=== PATIENT | female | born 1995 | race Caucasian/White ===

== ENCOUNTER 2024-08-19 20:28 | Inpatient (IN) ==
[2024-08-19] MEDS ORDERED: OXYTOCIN 30 UNITS/NSS 30 UNITS/500 ML BAG IV PRN (20:47)
[2024-08-19] MEDS ORDERED: LIDOCAINE 1% LOCAL 20 ML VIAL INFIL PRN (20:47)
[2024-08-19 21:16] LABS: Hematocrit (blood only) 40.0 % (37.0-47.0); Hemoglobin 13.6 g/dl (12.0-16.0); Mean Corpuscular Hemoglobin 30.0 pg (25.0-34.0); Mean Corpuscular Volume 88.1 fL (80.0-100.0); Platelet Count 171 K/uL (130-400); RDW Standard Deviation 42.9 fL (36.4-46.3); Red Blood Count 4.54 M/uL (4.20-5.40); White Blood Count 11.35 K/ul (4.8-10.8)
[2024-08-19] MEDS: LACTATED RINGER'S 1,000 ML IV PRN (21:19)
--- NOTE | 2024-08-19 21:22 | Anesthesiology Consultation ---
Date of Service August 19, 2024 Assessment & Plan (1) Encounter for pre-operative examination: Chart Review Chart Review: Acceptable Risk for Labor Epidural History Height/Weight Height: 5 ft 4 in Weight: 74.843 kg Allergies Allergy/AdvReac Type Severity Reaction Status Date / Time No Known Allergies Allergy Verified 08/19/24 20:52 Medications Home Medications Medication Instructions Recorded Confirmed Last Taken duloxetine 90 mg PO DAILY 04/25/24 08/19/24 08/18/24 21:00 [id number] 1 tab PO DAILY 04/25/24 08/19/24 08/18/24 21:00 [ Plus] acetone (urine) test (Ketone Urine #50 ea 06/09/24 08/12/24 Unknown Test strips) blood sugar diagnostic (OneTouch #150 ea 06/09/24 08/12/24 Unknown Verio test strips) blood-glucose meter (OneTouch #1 ea 06/09/24 08/12/24 Unknown Verio Reflect Meter) lancets 33 gauge (OneTouch Delica #150 ea 06/09/24 08/12/24 Unknown Plus Lancet) Active Medications Generic Name Dose Route Start Last Admin Trade Name Freq PRN Reason Stop Dose Admin Lactated Ringer's 1,000 mls @ 125 mls/hr 08/19/24 20:47 08/19/24 21:19 Lr IV 08/21/24 20:46 999 mls/hr .Q8H PRN Administration L&D Protocol Protocol Past Medical History Medical History Varicella vaccination Small fiber neuropathy Past Family History Family History Mother Thyroid cancer Father Thyroid cancer Denies family history of Ovarian cancer Breast cancer Colorectal cancer Past Surgical History Surgical History H/O rhinoplasty Social History Smoking Status: Never smoker Do You Dip or Chew Tobacco: No Hx Alcohol Use: No Hx Substance Use: No Physical Exam Vital Signs Last Vital Signs Temp 36.7 C 08/19/24 20:56 Pulse 86 08/19/24 20:56 Resp 18 08/19/24 20:56 BP 123/80 08/19/24 20:56 Testing Laboratory Results 08/19/24 21:01
[2024-08-19] MEDS: BUPIVACAINE 0.25% PF 30 ML VIAL ONE (21:50)
[2024-08-19] MEDS: LIDOCAINE 2%/EPINEPHRINE 1:200,000 20 ML PF ONE (21:50)
[2024-08-19] MEDS ORDERED: BUPIVACAINE 0.25% PF 30 ML VIAL EPI PRN (21:51)
[2024-08-19] MEDS ORDERED: ONDANSETRON INJ 2 MG/ML 2 ML VIAL IV PRN (21:51)
[2024-08-19] MEDS ORDERED: ROPIVACAINE 0.5% PF 5 MG/ML 20 ML VIAL EPI PRN (21:51)
[2024-08-19] MEDS ORDERED: LIDOCAINE 2% MPF LOCAL 5 ML VIAL EPI PRN (21:51)
[2024-08-19] MEDS ORDERED: fentANYL 2 MCG/ML BUPIVacaine 0.125%-NSS 100ML BAG EPI PRN (21:51)
[2024-08-19] MEDS ORDERED: NALOXONE HCL 1 MG in SODIUM CHLORIDE 0.9% 1,000 ML IV PRN (21:51)
[2024-08-19] MEDS ORDERED: SODIUM CHLORIDE 0.9% PF INJ 10 ML VIAL EPI PRN (21:51)
[2024-08-19] MEDS ORDERED: NALOXONE HCL 0.4 MG/1 ML VIAL/CARP IV PRN (21:51)
[2024-08-19] MEDS: fentANYL 2 MCG/ML BUPIVacaine 0.125%-NSS 100ML BAG ONE (21:53)
[2024-08-20] MEDS: SODIUM CHLORIDE 0.9% PF INJ 10 ML VIAL ONE (02:35)
[2024-08-20] MEDS: CALCIUM CARBONATE 500 MG CHEWABLE TAB PO PRN (02:38)
[2024-08-20] MEDS: OXYTOCIN 30 UNITS/NSS 30 UNITS/500 ML BAG IV SCH (05:34)
--- NOTE | 2024-08-20 07:00 | Delivery Summary ---
Vaginal Delivery Summary Date of Service August 20, 2024 Vaginal Delivery Summary DIAGNOSES: 1. Mcgarry intrauterine at 39w0d gestation. 2. Spontaneous onset of labor. 3. Group B Streptococcus Neg. PROCEDURE: Spontaneous vaginal delivery and repair of second degree laceration. SURGEON: Patricia Daniels MD. CYANIDE POT TENDER: None. ESTIMATED BLOOD LOSS: 564 mL. COMPLICATIONS: None. PLACENTA: Spontaneous and intact with a 3-vessel cord. DISPOSITION: Stable to labor and delivery. DESCRIPTION: The patient pushed well and brought the head to in DOA position. The infant's head was allowed to deliver with contraction force and no further active pushing, with the perineum protected during this time. There was a posterior shoulder cord which also later was found to be wrapped around the infant's waist tightly x3. The shoulders and body delivered without any difficulty, and the was placed on the maternal abdomen. It was vigorous and moving all extremities, and making respiratory efforts. The cord was doubly clamped by the MD and then cut by the FOB. The placenta delivered spontaneously and was noted to be intact and with a 3VC. The cervix, vagina and perineum were examined and were found to have a second-degree laceration which was repaired in the usual manner with vicryl suture. Following a betadine prep, the bladder was emptied via straight cath. The fundus was firm and lochia minimal immediately after delivery. [facility] Vaginal Delivery Charge Vaginal Delivery Codes: 44700 global code for the antepartum, delivery, and post-
[2024-08-20] MEDS ORDERED: HYDROCORTISONE ACETATE 25 MG SUPP PR PRN (07:06)
[2024-08-20] MEDS: DIPHTHER/TETAN/PERTUS Vaccine (Tdap, Adol/Adult) 0.5mL IM ONE (07:14)
[2024-08-20] MEDS: OXYTOCIN 30 UNITS/NSS 30 UNITS/500 ML BAG IV PRN (07:15)
--- NOTE | 2024-08-20 07:35 | Anesthesia Procedure Note ---
Date of Service August 20, 2024 Anesthesia Post Epidural Note Vital Signs Vital Signs: Temp Pulse Resp BP Pulse Ox 37.2 C 78 20 134/94 83 L 08/20/24 04:46 08/20/24 07:28 08/20/24 07:28 08/20/24 07:28 08/20/24 06:25 Notes Mental Status: alert / awake / arousable and participated in evaluation Patient Amnestic to Procedure: No Nausea / Vomiting: adequately controlled Pain: adequately controlled Airway Patency, RR, SpO2: stable & adequate BP & HR: stable & adequate Hydration State: stable & adequate Neuraxial Anesthesia: was administered and sensory block is resolving Anesthetic Complications: no major complications apparent and Pt Satisfied with anesthetic care Epidural: Removed without complications and With tip intact
[2024-08-20] MEDS: DOCUSATE SODIUM 100 MG CAP PO SCH (07:50)
[2024-08-20] MEDS: PRENATAL VITAMIN 1 TAB PO SCH (07:50)
[2024-08-20] MEDS ORDERED: Nursing to Pharmacy Communication SCH (08:00)
[2024-08-20 09:58] LABS: Hematocrit (blood only) 27.9 % (37.0-47.0); Hemoglobin 9.4 g/dl (12.0-16.0); Mean Corpuscular Hemoglobin 30.5 pg (25.0-34.0); Mean Corpuscular Volume 90.6 fL (80.0-100.0); Platelet Count 129 K/uL (130-400); RDW Standard Deviation 44.1 fL (36.4-46.3); Red Blood Count 3.08 M/uL (4.20-5.40); White Blood Count 16.24 K/ul (4.8-10.8)
[2024-08-20 10:06] LABS: Alanine Aminotransferase 23.0 U/L (7-52); Creatinine Clr Calc Pharmacy 66.9 ml/min
[2024-08-20] MEDS: IBUPROFEN 600 MG TAB PO PRN (10:43)
[2024-08-20] MEDS: BENZOCAINE 20% SPRY 85 APPLN/85 GM CAN EXT PRN (13:54)
[2024-08-21 06:26] LABS: Hematocrit (blood only) 25.7 % (37.0-47.0); Hemoglobin 8.8 g/dl (12.0-16.0); Mean Corpuscular Hemoglobin 31.0 pg (25.0-34.0); Mean Corpuscular Volume 90.5 fL (80.0-100.0); Platelet Count 137 K/uL (130-400); RDW Standard Deviation 44.6 fL (36.4-46.3); Red Blood Count 2.84 M/uL (4.20-5.40); White Blood Count 13.37 K/ul (4.8-10.8)
[2024-08-21 06:41] LABS: Creatinine Clr Calc Pharmacy 72.1 ml/min
--- NOTE | 2024-08-21 07:45 | Obstetrical Progress Note ---
Date of Service August 21, 2024 Assessment & Plan (1) Encounter for care and examination after delivery: Day 1 status post vaginal delivery. Overall doing well today. Has some labile blood pressures throughout the day yesterday but denying any preeclampsia symptoms. She is mostly normotensive with occasional mild range blood pressure noted. Creatinine was mildly elevated immediately after delivery but has improved to normal range. Will continue to monitor but not indicating treatment of blood pressures at this time Subjective Ambulation: ambulating normally Voiding: no voiding problems Passing Gas:: Yes Diet Tolerance:: regular diet Lochia:: Moderate Physical Exam Constitutional WD/WN, vitals as above Respiratory normal respiratory effort; no respiratory distress and no labored breathing Cardiovascular Extremities: no calf tenderness Gastrointestinal (Abdomen) Inspection/Auscultation: abdomen normal to inspection; abdomen not distended Percussion/Palpation: abdomen soft; abdomen nontender, no guarding and abdomen not rigid Genitourinary OB Exam Abdomen: + fundal height Fundus: + firm and + relation to umbilicus (Below); not tender or not boggy Results & Data Vital Signs (Past 12 Hours) Vital Signs Temp Pulse Resp BP Pulse Ox O2 Del Method 08/21/24 04:15 36.5 C 83 18 130/87 97 Room Air 08/20/24 23:50 130/90 08/20/24 23:40 36.7 C 69 20 145/94 H 99 Room Air
[2024-08-21] MEDS: SODIUM CHLORIDE 0.9% PF INJ 10 ML VIAL EPI STA (23:31)
[2024-08-21] MEDS: LIDOCAINE 2%/EPINEPHRINE 1:200,000 20 ML PF EPI STA (23:31)
[2024-08-21] MEDS: BUPIVACAINE 0.25% PF 30 ML VIAL EPI STA (23:32)
[2024-08-22 06:51] LABS: Hematocrit (blood only) 24.6 % (37.0-47.0); Hemoglobin 8.3 g/dl (12.0-16.0)
--- NOTE | 2024-08-22 07:35 | Obstetrical Progress Note ---
Date of Service August 22, 2024 Assessment & Plan (1) Encounter for care and examination after delivery: Plan PPD#2 doing well. Ambulating well, eating/drinking ok. Not planning to breastfeed- discussed compression bra, ice packs. Reviewed instructions. Followup office 6w. She will start iron PO. Subjective Ambulation: ambulating normally Voiding: no voiding problems Diet Tolerance:: regular diet Lochia:: Moderate Review of Systems All systems reviewed & are unremarkable except as noted in HPI & below Physical Exam Constitutional WD/WN, vitals as above no acute distress Respiratory normal respiratory effort Cardiovascular Rate/Rhythm: regular rate and regular rhythm Gastrointestinal (Abdomen) Inspection/Auscultation: abdomen normal to inspection; abdomen not distended Percussion/Palpation: abdomen soft Genitourinary OB Exam Abdomen: + fundal height Fundus: + firm; not tender Results & Data Vital Signs (Past 12 Hours) Vital Signs Temp Pulse Resp BP Pulse Ox O2 Del Method 08/21/24 23:36 36.7 C 76 16 128/82 98 Room Air
[2024-08-22 10:06] LABS: Hematocrit (blood only) 23.8 % (37.0-47.0); Hemoglobin 8.3 g/dl (12.0-16.0); Mean Corpuscular Hemoglobin 31.2 pg (25.0-34.0); Mean Corpuscular Volume 89.5 fL (80.0-100.0); Platelet Count 163 K/uL (130-400); RDW Standard Deviation 45.1 fL (36.4-46.3); Red Blood Count 2.66 M/uL (4.20-5.40); White Blood Count 11.22 K/ul (4.8-10.8)
[2024-08-22 10:25] LABS: Alanine Aminotransferase 28.0 U/L (7-52); Albumin Globulin Ratio 1.4 (0.9-2); Alkaline Phosphatase 204.0 U/L (34-104); Anion Gap 4.0 (3-11); Bilirubin,Total 0.3 mg/dl (0.2-1.0); Blood Urea Nitrogen 15.0 mg/dl (6-23); Calcium 7.9 mg/dl (8.6-10.3); Carbon Dioxide 24.0 mmol/L (21-32); Chloride 110.0 mmol/L (98-107); Creatinine Clr Calc Pharmacy 93.5 ml/min; Globulin 2.0 gm/dl (2.5-4.0); Glucose 77.0 mg/dl (70-99(Fasting)); Potassium 4.1 mmol/L (3.5-5.1); Sodium 138.0 mmol/L (136-145); Total Protein 4.7 gm/dl (6.0-8.3)
--- NOTE | 2024-08-22 11:18 | Obstetrical Progress Note ---
Date of Service August 22, 2024 Assessment & Plan (1) Preeclampsia: Plan Has preeclampsia now with one severe blood pressure. Has a very mild elevated of one transaminase. Will want to keep patient and monitor. Will treat blood pressure at this point. Repeat labs in 6 hours. If severe bps persist or worsening of lab values, will need to treat with Mag. Explained to patient and her and they express understanding of the situation. Subjective Patient ready for d/c but had elevated blood pressures. Has had some labile bp in the pp period. Patient is completely asx--denies monge/vision changes/ruq pain/increase in swelling. 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 h/h stable. Has had one severe blood pressure. Physical Exam Constitutional WD/WN, vitals as above Cardiovascular Extremities: + edema (tr); no calf tenderness Gastrointestinal (Abdomen) soft, nt, nd, ff/nt at u no ruq pain Neurologic patellar DTR's 2+ bilat, sensation intact Psychiatric A+Ox3, euthymic affect Results & Data Vital Signs (Past 12 Hours) Vital Signs Temp Pulse Pulse Resp BP Pulse Ox O2 Del Method 08/22/24 10:45 156/112 H 08/22/24 08:55 137/98 08/22/24 08:30 150/95 H 08/22/24 07:30 Room Air 08/22/24 07:30 36.4 C L 71 20 146/94 H 99 Room Air 08/21/24 23:36 36.7 C 76 16 128/82 98 Room Air
[2024-08-22] MEDS: LABETALOL HCL 200 MG TAB PO SCH (11:34)
--- NOTE | 2024-08-22 11:52 | Communication Note ---
Date of Service: August 22, 2024 Just got dose of labatelol. Now however, noting blurred vision. given bp , slightly bumped lft and now a severe sx, plan to transfer over for Mag prophylax is. discussed and they express understanding.
[2024-08-22] MEDS: LACTATED RINGER'S 1,000 ML IV SCH (12:30)
[2024-08-22] MEDS: MAGNESIUM SULFATE / WTR 40 GM/1,000 ML BAG IV SCH (12:37)
[2024-08-22] MEDS: MAG SULFATE 4GM BOLUS FROM BAG IV ONE (12:41)
[2024-08-22] MEDS: LIDOCAINE 2% JELLY 5 ML TUBE EXT ONE (12:41)
[2024-08-22 16:18] LABS: Hematocrit (blood only) 25.9 % (37.0-47.0); Hemoglobin 8.5 g/dl (12.0-16.0); Mean Corpuscular Hemoglobin 30.5 pg (25.0-34.0); Mean Corpuscular Volume 92.8 fL (80.0-100.0); Platelet Count 188 K/uL (130-400); RDW Standard Deviation 46.8 fL (36.4-46.3); Red Blood Count 2.79 M/uL (4.20-5.40); White Blood Count 10.73 K/ul (4.8-10.8)
[2024-08-22 16:37] LABS: Alanine Aminotransferase 70.0 U/L (7-52); Albumin Globulin Ratio 1.2 (0.9-2); Alkaline Phosphatase 223.0 U/L (34-104); Anion Gap 8.0 (3-11); Bilirubin,Total 0.3 mg/dl (0.2-1.0); Blood Urea Nitrogen 13.0 mg/dl (6-23); Calcium 7.5 mg/dl (8.6-10.3); Carbon Dioxide 22.0 mmol/L (21-32); Chloride 110.0 mmol/L (98-107); Creatinine Clr Calc Pharmacy 94.5 ml/min; Globulin 2.1 gm/dl (2.5-4.0); Glucose 159.0 mg/dl (70-99(Fasting)); Potassium 3.6 mmol/L (3.5-5.1); Sodium 140.0 mmol/L (136-145); Total Protein 4.7 gm/dl (6.0-8.3)
[2024-08-22] MEDS: ACETAMINOPHEN 325 MG TAB PO PRN (19:05)
[2024-08-23 05:31] LABS: Hematocrit (blood only) 28.3 % (37.0-47.0); Hemoglobin 9.4 g/dl (12.0-16.0); Mean Corpuscular Hemoglobin 30.1 pg (25.0-34.0); Mean Corpuscular Volume 90.7 fL (80.0-100.0); Platelet Count 223 K/uL (130-400); RDW Standard Deviation 45.5 fL (36.4-46.3); Red Blood Count 3.12 M/uL (4.20-5.40); White Blood Count 11.18 K/ul (4.8-10.8)
[2024-08-23 05:51] LABS: Alanine Aminotransferase 249.0 U/L (7-52); Albumin Globulin Ratio 1.1 (0.9-2); Alkaline Phosphatase 244.0 U/L (34-104); Anion Gap 5.0 (3-11); Bilirubin,Total 0.4 mg/dl (0.2-1.0); Blood Urea Nitrogen 10.0 mg/dl (6-23); Calcium 6.8 mg/dl (8.6-10.3); Carbon Dioxide 27.0 mmol/L (21-32); Chloride 107.0 mmol/L (98-107); Creatinine Clr Calc Pharmacy 102.8 ml/min; Globulin 2.5 gm/dl (2.5-4.0); Glucose 78.0 mg/dl (70-99(Fasting)); Potassium 4.4 mmol/L (3.5-5.1); Sodium 139.0 mmol/L (136-145); Total Protein 5.3 gm/dl (6.0-8.3)
--- NOTE | 2024-08-23 06:34 | Obstetrical Progress Note ---
Date of Service August 23, 2024 Assessment & Plan (1) Preeclampsia: (2) Encounter for care and examination after delivery: Plan Labs this am show a further bump in lfts that are not surprising and hopefully peaking, plts stable. no s/s of pet. Mag for 24 hours and off at 1. Hold labetalol for now. Making over 5000cc of urine overnight. Subjective Did well overnight. Pressures responded to mag. Notes some neck pain (has had for three years). Notes no pet sx. Physical Exam Constitutional WD/WN, vitals as above Respiratory normal respiratory effort, lungs clear to auscultation Cardiovascular RRR, no murmur, no edema Extremities: no calf tenderness and no edema (tr) Gastrointestinal (Abdomen) soft, nt, nd, ff/nt about 2 below u Neurologic patellar DTR's 2+ bilat, sensation intact Psychiatric A+Ox3, euthymic affect Results & Data Vital Signs (Past 12 Hours) Vital Signs Temp Pulse Pulse Pulse Resp BP BP 08/23/24 06:28 81 08/23/24 06:23 82 08/23/24 06:18 74 08/23/24 06:13 77 08/23/24 06:08 75 08/23/24 06:03 82 08/23/24 05:58 78 08/23/24 05:53 77 08/23/24 05:48 76 08/23/24 05:43 84 08/23/24 05:38 79 08/23/24 05:33 69 08/23/24 05:28 75 08/23/24 05:23 77 08/23/24 05:18 83 08/23/24 05:13 78 08/23/24 05:08 80 08/23/24 05:03 08/23/24 05:03 78 08/23/24 05:03 75 139/96 08/23/24 05:01 77 132/92 08/23/24 05:00 18 08/23/24 04:58 93 H 08/23/24 04:53 80 08/23/24 04:48 77 08/23/24 04:43 75 08/23/24 04:38 86 08/23/24 04:33 79 08/23/24 04:28 93 H 08/23/24 04:23 76 08/23/24 04:18 78 08/23/24 04:13 77 08/23/24 04:08 77 08/23/24 04:03 81 08/23/24 04:02 18 08/23/24 03:58 76 08/23/24 03:53 78 08/23/24 03:48 77 08/23/24 03:43 79 08/23/24 03:38 76 08/23/24 03:33 77 08/23/24 03:28 77 08/23/24 03:23 76 08/23/24 03:18 76 08/23/24 03:13 78 08/23/24 03:08 79 08/23/24 03:05 18 08/23/24 03:03 83 08/23/24 03:01 79 135/88 08/23/24 02:58 79 08/23/24 02:53 82 08/23/24 02:48 78 08/23/24 02:43 79 08/23/24 02:38 82 08/23/24 02:33 83 08/23/24 02:28 81 08/23/24 02:23 78 08/23/24 02:18 81 08/23/24 02:13 76 08/23/24 02:08 77 08/23/24 02:03 73 08/23/24 02:01 16 08/23/24 01:58 91 H 08/23/24 01:53 79 08/23/24 01:48 77 08/23/24 01:43 74 08/23/24 01:38 81 08/23/24 01:33 76 08/23/24 01:28 79 08/23/24 01:23 76 08/23/24 01:18 76 08/23/24 01:13 76 08/23/24 01:08 75 08/23/24 01:05 16 08/23/24 01:05 16 08/23/24 01:03 75 08/23/24 01:01 80 130/83 08/23/24 00:58 74 08/23/24 00:53 74 08/23/24 00:48 75 08/23/24 00:43 73 08/23/24 00:38 76 08/23/24 00:33 73 08/23/24 00:28 72 08/23/24 00:23 75 08/23/24 00:18 72 08/23/24 00:13 71 08/23/24 00:08 76 08/23/24 00:03 73 08/23/24 00:00 14 08/22/24 23:59 73 08/22/24 23:58 70 08/22/24 23:53 76 08/22/24 23:48 73 08/22/24 23:43 81 08/22/24 23:42 76 08/22/24 23:38 75 08/22/24 23:33 76 08/22/24 23:28 76 08/22/24 23:23 80 08/22/24 23:18 73 08/22/24 23:13 73 08/22/24 23:08 77 08/22/24 23:03 78 08/22/24 23:02 75 16 119/84 08/22/24 23:01 75 119/84 08/22/24 23:00 16 08/22/24 22:58 78 08/22/24 22:53 78 08/22/24 22:48 78 08/22/24 22:43 80 08/22/24 22:38 87 08/22/24 22:33 76 08/22/24 22:28 89 08/22/24 22:23 81 08/22/24 22:18 85 08/22/24 22:13 76 08/22/24 22:08 81 08/22/24 22:03 80 08/22/24 22:00 18 08/22/24 21:58 78 08/22/24 21:53 85 08/22/24 21:48 79 08/22/24 21:43 83 08/22/24 21:38 73 08/22/24 21:33 77 08/22/24 21:28 83 08/22/24 21:23 75 08/22/24 21:18 80 08/22/24 21:13 75 08/22/24 21:08 76 08/22/24 21:03 74 08/22/24 21:01 72 116/83 08/22/24 21:00 36.5 C 72 16 116/83 08/22/24 21:00 16 08/22/24 20:58 75 08/22/24 20:53 75 08/22/24 20:48 83 08/22/24 20:47 80 118/81 08/22/24 20:43 75 08/22/24 20:38 74 08/22/24 20:33 76 08/22/24 20:28 75 08/22/24 20:23 76 08/22/24 20:18 83 08/22/24 20:13 85 08/22/24 20:08 86 08/22/24 20:03 84 08/22/24 20:00 16 08/22/24 19:58 89 08/22/24 19:53 79 08/22/24 19:48 78 08/22/24 19:43 78 112/75 08/22/24 19:38 81 08/22/24 19:33 79 08/22/24 19:28 77 08/22/24 19:23 81 08/22/24 19:18 75 08/22/24 19:13 80 08/22/24 19:08 73 08/22/24 19:05 16 08/22/24 19:03 76 08/22/24 19:00 36.5 C 78 16 114/73 08/22/24 19:00 78 16 114/73 08/22/24 18:59 77 114/73 08/22/24 18:58 80 08/22/24 18:53 78 08/22/24 18:48 74 08/22/24 18:43 08/22/24 18:43 84 08/22/24 18:43 76 111/79 08/22/24 18:38 85 08/22/24 18:33 73 Pulse Ox O2 Del Method 08/23/24 06:28 98 08/23/24 06:23 100 08/23/24 06:18 100 08/23/24 06:13 99 08/23/24 06:08 100 08/23/24 06:03 99 08/23/24 05:58 100 08/23/24 05:53 100 08/23/24 05:48 100 08/23/24 05:43 100 08/23/24 05:38 100 08/23/24 05:33 100 08/23/24 05:28 100 08/23/24 05:23 100 08/23/24 05:18 98 08/23/24 05:13 100 08/23/24 05:08 100 08/23/24 05:03 100 08/23/24 05:03 08/23/24 05:03 08/23/24 05:01 08/23/24 05:00 08/23/24 04:58 100 08/23/24 04:53 98 08/23/24 04:48 98 08/23/24 04:43 98 08/23/24 04:38 99 08/23/24 04:33 97 08/23/24 04:28 98 08/23/24 04:23 97 08/23/24 04:18 97 08/23/24 04:13 97 08/23/24 04:08 97 08/23/24 04:03 97 08/23/24 04:02 08/23/24 03:58 97 08/23/24 03:53 97 08/23/24 03:48 96 08/23/24 03:43 98 08/23/24 03:38 97 08/23/24 03:33 97 08/23/24 03:28 97 08/23/24 03:23 97 08/23/24 03:18 97 08/23/24 03:13 97 08/23/24 03:08 98 08/23/24 03:05 08/23/24 03:03 100 08/23/24 03:01 08/23/24 02:58 97 08/23/24 02:53 97 08/23/24 02:48 98 08/23/24 02:43 97 08/23/24 02:38 100 08/23/24 02:33 100 08/23/24 02:28 100 08/23/24 02:23 100 08/23/24 02:18 100 08/23/24 02:13 100 08/23/24 02:08 100 08/23/24 02:03 100 08/23/24 02:01 08/23/24 01:58 100 08/23/24 01:53 100 08/23/24 01:48 99 08/23/24 01:43 100 08/23/24 01:38 100 08/23/24 01:33 97 08/23/24 01:28 99 08/23/24 01:23 100 08/23/24 01:18 98 08/23/24 01:13 99 08/23/24 01:08 97 08/23/24 01:05 08/23/24 01:05 08/23/24 01:03 98 08/23/24 01:01 08/23/24 00:58 96 08/23/24 00:53 96 08/23/24 00:48 96 08/23/24 00:43 96 08/23/24 00:38 96 08/23/24 00:33 95 08/23/24 00:28 95 08/23/24 00:23 95 08/23/24 00:18 95 08/23/24 00:13 94 08/23/24 00:08 98 08/23/24 00:03 95 08/23/24 00:00 08/22/24 23:59 94 08/22/24 23:58 97 08/22/24 23:53 98 08/22/24 23:48 95 08/22/24 23:43 94 08/22/24 23:42 94 08/22/24 23:38 96 08/22/24 23:33 100 08/22/24 23:28 98 08/22/24 23:23 100 08/22/24 23:18 99 08/22/24 23:13 100 08/22/24 23:08 100 08/22/24 23:03 100 08/22/24 23:02 100 08/22/24 23:01 08/22/24 23:00 08/22/24 22:58 100 08/22/24 22:53 99 08/22/24 22:48 100 08/22/24 22:43 100 08/22/24 22:38 99 08/22/24 22:33 100 08/22/24 22:28 100 08/22/24 22:23 100 08/22/24 22:18 100 08/22/24 22:13 100 08/22/24 22:08 100 08/22/24 22:03 100 08/22/24 22:00 08/22/24 21:58 99 08/22/24 21:53 99 08/22/24 21:48 100 08/22/24 21:43 97 08/22/24 21:38 99 08/22/24 21:33 98 08/22/24 21:28 100 08/22/24 21:23 98 08/22/24 21:18 98 08/22/24 21:13 100 08/22/24 21:08 100 08/22/24 21:03 100 08/22/24 21:01 08/22/24 21:00 100 Room Air 08/22/24 21:00 08/22/24 20:58 100 08/22/24 20:53 100 08/22/24 20:48 100 08/22/24 20:47 08/22/24 20:43 100 08/22/24 20:38 100 08/22/24 20:33 99 08/22/24 20:28 100 08/22/24 20:23 100 08/22/24 20:18 100 08/22/24 20:13 100 08/22/24 20:08 100 08/22/24 20:03 100 08/22/24 20:00 08/22/24 19:58 100 08/22/24 19:53 98 08/22/24 19:48 100 08/22/24 19:43 99 08/22/24 19:38 100 08/22/24 19:33 100 08/22/24 19:28 100 08/22/24 19:23 100 08/22/24 19:18 99 08/22/24 19:13 100 08/22/24 19:08 100 08/22/24 19:05 08/22/24 19:03 99 08/22/24 19:00 100 Room Air 08/22/24 19:00 100 Room Air 08/22/24 18:59 08/22/24 18:58 100 08/22/24 18:53 100 08/22/24 18:48 100 08/22/24 18:43 100 08/22/24 18:43 08/22/24 18:43 08/22/24 18:38 99 08/22/24 18:33 99
[2024-08-23] MEDS: STOP ORDER ONE (13:19)
[2024-08-24 06:40] LABS: Hematocrit (blood only) 28.3 % (37.0-47.0); Hemoglobin 9.2 g/dl (12.0-16.0); Mean Corpuscular Hemoglobin 30.3 pg (25.0-34.0); Mean Corpuscular Volume 93.1 fL (80.0-100.0); Platelet Count 274 K/uL (130-400); RDW Standard Deviation 47.1 fL (36.4-46.3); Red Blood Count 3.04 M/uL (4.20-5.40); White Blood Count 10.03 K/ul (4.8-10.8)
[2024-08-24 06:58] LABS: Alanine Aminotransferase 202.0 U/L (7-52); Albumin Globulin Ratio 1.3 (0.9-2); Alkaline Phosphatase 201.0 U/L (34-104); Anion Gap 4.0 (3-11); Bilirubin,Total 0.3 mg/dl (0.2-1.0); Blood Urea Nitrogen 15.0 mg/dl (6-23); Calcium 7.4 mg/dl (8.6-10.3); Carbon Dioxide 25.0 mmol/L (21-32); Chloride 110.0 mmol/L (98-107); Creatinine Clr Calc Pharmacy 99.1 ml/min; Globulin 2.3 gm/dl (2.5-4.0); Glucose 94.0 mg/dl (70-99(Fasting)); Potassium 4.1 mmol/L (3.5-5.1); Sodium 139.0 mmol/L (136-145); Total Protein 5.2 gm/dl (6.0-8.3)
--- NOTE | 2024-08-24 07:42 | Obstetrical Progress Note ---
Date of Service August 24, 2024 Assessment & Plan (1) Preeclampsia: (2) Encounter for care and examination after delivery: Plan 29 yo PP4 from c/b pre-eclampsia w/ severe features, doing well -Meeting all pp milestones -O-/rubella immune. s/p rhogam -BPs remain normal to mild range, LFTs are downtrending today and pt w/o s/s of PET. Discussed monitoring bps this am and if remain stable, ok for dc this pm and plan for bp check early this week. PET precautions reviewed, pt verbalized understanding Subjective Ambulation: ambulating normally Voiding: no voiding problems Passing Gas:: Yes Diet Tolerance:: regular diet Lochia:: Small Feeding Type:: bottle feeding Pain well managed with medication Review of Systems Denies fevers, chills, n/v, TOBIN, CP, SOB Physical Exam Constitutional WD/WN, vitals as above no acute distress Respiratory normal respiratory effort, lungs clear to auscultation Cardiovascular RRR, no murmur, no edema Gastrointestinal (Abdomen) Percussion/Palpation: abdomen soft; abdomen nontender fundus firm at umbilicus and NT Musculoskeletal BLE symmetric, nonerythematous, nontender Results & Data Vital Signs (Past 12 Hours) Vital Signs Temp Pulse Pulse Resp BP Pulse Ox O2 Del Method 08/24/24 03:24 81 17 135/85 98 Room Air 08/23/24 23:20 97.5 F L 89 18 133/90 98 Room Air 08/23/24 20:00 98.1 F 83 18 138/90 99 Room Air
[2024-08-24 08:28] VITALS: O2SAT 97
[2024-08-24 12:22] VITALS: RESP 18; TEMP 97.5
[2024-08-24 13:07] VITALS: BP 143/99; PULSE 96
--- NOTE | 2024-08-24 13:27 | Communication Note ---
Date of Service: August 24, 2024 BPs mild range this AM, denies s/s. Feels like can't fully relax while here and diastolic just on the higher end, suspect is r/t being anxious about being able to leave vs true pih so I think still ok for dc. Will have close f/u in office, pre-eclampsia s/s reviewed
== END 2024-08-24 14:10 | disposition home or self-care (01) | DRG 807 ==
LOC: OPB 20:28 → 4S1 20:29 → 4E2 08-20 11:59 → 4S1 08-22 12:15 → 4E2 08-23 14:48